=== PATIENT | female | born 1940 | race Caucasian/White ===

== ENCOUNTER 2016-09-12 08:35 | Day surgery (SDC) | payer MEDICARE ==
[~2016-09-12] VITALS: Ht 167.6 cm; Wt 75.3 kg
[~2016-09-12 08:35] MED LIST: 0.9% Sodium Chloride 1,000 ML IV SCH; ALLO300T2 PO; AMLO5TAB2 PO; ATEN50TA PO; COLC0.6T55 PO; CYCL10TA9 PO; ESTR1TAB24 PO; GUAI118L13 PO; IBUP800T28 PO; LEVO75TA4 PO; OMEP40CA36 PO; RES30 PO; SIMV10TA4 PO; Sodium Chloride LOK Flush 10 mL Syringe IV PRN; fentaNYL-PF 50 mCg/mL 2 mL Inj IVPUSH PRN
[2016-09-12 09:02] VITALS: BP 135/89; PULSE 71; RESP 14; O2SAT 97
[2016-09-12 10:19] VITALS: BP 162/86; PULSE 67; RESP 14; O2SAT 95
[2016-09-12 10:30] VITALS: BP 142/82; PULSE 70; RESP 14; O2SAT 97
--- NOTE | 2016-09-12 22:43 | ENDO ---
[address] [address] ENDOSCOPY PROCEDURE PATIENT: JOANN REES I : 1940 MR#: [id number] ADMIT: 09/12/2016 JOB ID: [id number] DATE: 09/12/2016 PRIMARY PROVIDER: Natalia Harrison PA-C. PROCEDURE: 1. Colonoscopy. 2. Cold forceps polypectomy. INDICATIONS: A 75-year-old female with a personal history of adenomatous colon polyps returning for surveillance. EQUIPMENT: PCF H 180 AL. SEDATION: 6 mg Versed and 100 mcg fentanyl. COMPLICATIONS: None identified. BOWEL PREPARATION: Fair, adequate exam. PROCEDURE INFORMATION: After the risks and benefits were explained, written and verbal informed consent was obtained. The patient was brought into the endoscopy suite and placed into the left lateral decubitus position. Sedation was achieved using the above-stated medications with the addition of oxygen via nasal cannula. A digital rectal examination was accomplished. No significant pathology appreciated. The scope was introduced into the rectum and advanced to the cecum as identified by the appendiceal orifice and ileocecal valve. The scope was slowly withdrawn to carefully examine the mucosa for any defects or lesions. Multiple direct views were made through the dentate line for exclusion of pathology. The colon was decompressed, the scope removed from the patient who tolerated the procedure well. FINDINGS: No significant pathology appreciated throughout apart from a small, perhaps 4-5 mm polyp on the ileocecal valve removed with cold forceps. There was a small nonbleeding AVM in the cecum. ENDOSCOPIC DIAGNOSES: 1. Colon polyp. 2. Cecal arteriovenous malformation. 3. Mild internal hemorrhoids (not mentioned above). RECOMMENDATIONS: 1. Await histopathology. 2. Repeat colonoscopy five years.
--- NOTE | 2016-09-14 19:08 | PATH ---
SURGICAL PATHOLOGY Attending Physician:Dimas Gregorio CASE STATUS: Signed Out PATIENT NAME: JOANN REES I. PID: [id number] : 1940 DATE COLLECTED:09/12/2016 16:24 SPECIMEN: Colon, Biopsy CLINICAL HISTORY: PHX OF POLYPS 1). ILEO-CECAL VALVE POLYP X1 FINAL DIAGNOSIS: Ileocecal Valve Polyp, Biopsy: Tubular adenoma; negative for high-grade dysplasia. ICD10: K63.5 GROSS DESCRIPTION: The specimen is received in one formalin filled container labeled with the patient's name, sublabeled "ICV polyp x1" and consists of a 0.2 x 0.2 x 0.2 CM portion of tissue which is entirely submitted in one cassette. 09/12/2016 [facility] ICD-9 CODES: CPT CODES: 1: 46352 Electronically Signed Out Kiesha Diamond MD [facility] Pathology [facility] [address], [place] [address] Technical component performed at [facility], [address] [place] [address] Ave[address], [address]
== END 2016-09-12 23:59 | disposition home or self-care (01) ==
LOC: END 08:35
PROVIDERS: ATTEND Internal Medicine Gastroenterology
DX: Z12.11 Encounter for screening for malignant neoplasm of colon (principal); D12.0 Benign neoplasm of cecum; K55.20 Angiodysplasia of colon without hemorrhage; K64.8 Other hemorrhoids; Z86.010 Personal history of colon polyps; I12.9 Hypertensive chronic kidney disease with stage 1 through stage 4 chronic kidney disease, or unspecified chronic kidney disease; E11.9 Type 2 diabetes mellitus without complications; N18.9 Chronic kidney disease, unspecified; M10.071 Idiopathic gout, right ankle and foot; E03.9 Hypothyroidism, unspecified; E78.5 Hyperlipidemia, unspecified; Z87.891 Personal history of nicotine dependence
CPT/HCPCS: 45380; 99153; G0500; J7030